=== PATIENT | female | born 1985 | race Hispanic/Latino ===

== ENCOUNTER 2019-04-29 17:27 | Emergency (ER) | payer OTHER ==
[2019-04-29] MEDS ORDERED: diphenhydrAMINE 25 MG CAP ONE (17:44)
[2019-04-29] MEDS ORDERED: Dexamethasone 10 MG/ML VIAL ONE (17:44)
== END 2019-04-29 17:58 | disposition home or self-care (01) ==
LOC: SCSER 17:27
DX: L50.0 Allergic urticaria (principal)
CPT/HCPCS: 96372; 99283; J1100; Q0163

== ENCOUNTER 2019-10-04 11:26 | Outpatient (CLI) | payer OTHER | END 2019-10-04 11:27 | disposition home or self-care (01) | LOC: CTENTCT 11:26 | PROVIDERS: ATTEND Otolaryngology Plastic Surgery within the Head & Neck | DX: J32.8 Other chronic sinusitis (principal) | CPT/HCPCS: 70486 ==

== ENCOUNTER 2020-01-02 19:58 | Emergency (ER) | payer OTHER ==
[2020-01-03 11:06] LABS: SARS-CoV-2 MS2 Positive; SARS-CoV-2 N Gene Negative; SARS-CoV-2 S Gene Negative; SARS-CoV-2 orf1ab Negative
== END 2020-01-02 20:35 | disposition home or self-care (01) ==
LOC: ERS 19:58
DX: Z20.828 Contact with and (suspected) exposure to other viral communicable diseases (principal)
CPT/HCPCS: 87635; 99283; U0003

== ENCOUNTER 2020-08-21 08:27 | Outpatient (CLI) | payer OTHER ==
--- NOTE | 2020-08-21 09:48 | ULT ---
EXAM: US Abdominal CLINICAL HISTORY: Elevated liver function tests. Mid to left upper abdominal pain. Diarrhea. Chronic the patient.. COMPARISON: None. FINDINGS: Pancreas: Obscured by bowel gas IVC: Visualized IVC has a normal caliber. Aorta: Visualized aorta has a normal caliber. Liver:Increased echogenicity of the liver due to hepatic steatosis or hepatocellular disease. Subsequ ent limited evaluation for hepatic masses and intrahepatic biliary dilatation. Right hepatic lobe measures 18.5 cm. Gallbladder: Nonmobile nonshadowing echogenic focus near the neck of the gallbladder measuring 0.7 cm . Gallbladder wall polyp is favored. Gallbladder wall is not thickened. No pericholecystic fluid. Dean's sign:Negative CBD: 0.4 cm common bile duct diameter Portal vein: Patent. Appropriate directional flow. Right kidney: Normal cortical echotexture. No hydronephrosis Right kidney measuring 10.4 x 5.5 x 5. 8 cm in length. Left kidney: Normal cortical echotexture. No hydronephrosis. Left kidney measuring 11.1 x 6.5 x 6.0 cm in length Spleen: Normal echotexture, measuring 10.8 cm in maximum dimension IMPRESSION: 1. Gallbladder wall polyp. 2. Increased echogenicity of the liver which may be due to hepatic steatosis or hepatocellular diseas e. If there is concern for hepatic masses, consider abdomen MRI.
== END 2020-08-21 08:28 | disposition home or self-care (01) ==
LOC: BICULT 08:27
PROVIDERS: ATTEND Family Medicine
DX: R10.84 Generalized abdominal pain (principal); K82.4 Cholesterolosis of gallbladder; R93.2 Abnormal findings on diagnostic imaging of liver and biliary tract
CPT/HCPCS: 93975